=== PATIENT | male | born 1975 | race Two or more races ===

== ENCOUNTER → 2017-12-29 | Outpatient (REF) ==
[~2017-12-29] MED LIST: DOC100 PO; LORA-633 PO; OMEP-153 PO; PER PO; TYLENOL; VICODIN PO
== END ==
LOC: AUD 09:15
PROVIDERS: ATTEND Family Medicine
DX: Z01.10 Encounter for examination of ears and hearing without abnormal findings (principal)
CPT/HCPCS: 92552

== ENCOUNTER 2018-11-15 12:25 | Emergency (ER) | payer OTHER, BC ==
--- NOTE | 2018-11-15 12:27 | ER Report ---
History and Physical Time Seen By MD: 12:27 HPI/ROS CHIEF COMPLAINT: Right ankle pain HISTORY OF PRESENT ILLNESS: Patient states he was stepping out of a truck felt a pop in the lateral aspect of his ankle posteriorly and now has painful weightbearing. Patient states that injury was an inversion type injury. He reports no proximal leg tenderness and no pain in the foot; specifically over the 5th metatarsal. Allergies: Coded Allergies: No Known Drug Allergies (Verified , 10/26/11) Home Meds Reported Medications Lorazepam (Lorazepam) 1 Mg Tablet, 1 MG PO Q4H PRN, #12 0 Refills 10/26/11 Omeprazole (Omeprazole) 20 Mg Tablet.dr, 20 MG PO QDAY, #30 0 Refills 10/26/11 [None] No Conflict Check, 0 Refills 10/26/11 Past Medical/Surgical History History of reflux Hx Smoking: No Constitutional Vital Sign - Last 24 Hours 11/15/18 12:38 Temp 98.8 Physical Exam General appearance: alert no distress Right ankle: There is no significant swelling. There is no obvious deformity to the ankle. There is moderate tenderness to the steer aspect of the lateral malleolus. Ankle joint is stable and there is no tenderness over the achilles tendon. The foot is non-tender without swelling. Neurologic exam: The patient has normal sensation distal to the injury. Vascular exam: Normal pulses and capillary refill in the foot [ ] DIFFERENTIAL DIAGNOSIS: After history and physical exam differential diagnosis was considered for ankle injury including sprain, fracture, dislocation and soft tissue injury. Medical Decision Making EKG/Imaging Imaging FACILITY: [facility] [place] PATIENT NAME: Juancho De Anda : 1975 MR: [id number] V: [id number] EXAM DATE: ORDERING PHYSICIAN: DANIKA HULL TECHNOLOGIST: Location: [facility] Patient: Juancho De Anda : 1975 Visit/Account:[id number] Date of Sevice: 11/15/2018 INDICATION: pain. DATE: 11/15/2018 1:30 PM. TECHNIQUE: ANKLE 3 VIEW MIN RIGHT COMPARISON: None FINDINGS: Alignment is normal. No evidence of fracture or dislocation. No significant degenerative findings. IMPRESSION: No acute osseous abnormality. Report Dictated By: Emanuel Nava MD at 11/15/2018 1:30 PM Report E-Signed By: Emanuel Nava MD at 11/15/2018 1:31 PM WSN:[id number] ED Course/Re-evaluation ED Course Plan at this time will be x-ray of the right ankle and IV pain medication Decision to Disposition Date: Nov 15, 2018 Decision to Disposition Time: 13:59 Depart Departure Latest Vital Signs Vital Signs Date Time Temp Pulse Resp B/P (MAP) Pulse Ox O2 Delivery O2 Flow Rate FiO2 11/15/18 12:38 98.8 Impression: Primary Impression: Ankle sprain Condition: Improved Disposition: HOME OR SELF-CARE Referrals: BLANQUITA GRIMALDO MD (PCP) [facility] make an appointment if you still have pain with weight bearing after 7 days New Scripts Hydrocodone Bit/Acetaminophen (HYDROCODON-ACETAMINOPHEN 5-325) 1 Each Tablet 1 EACH PO Q4-6H PRN for PAIN, #12 TAB 0 Refills TAKE ONE TABLET BY MOUTH EVERY 4-6 HOURS NEEDED FOR PAIN Prov: DANIKA HULL MD 11/15/18 Departure Forms: ER Transition Record, Medications Reconciliation, Off Work/School Form, School or Work Release?: Work Number of days to be released: 3 Patient Portal Information Patient Instructions: Ankle Sprain (ED), Crutch Instructions (ED) Problem Qualifiers Primary Impression: Ankle sprain Encounter type: initial encounter Involved ligament of ankle: anterior talofibular ligament Laterality: right Qualified Codes: S93.491A - Sprain of other ligament of right ankle, initial encounter DANIKA HULL MD Nov 15, 2018 12:27
[2018-11-15] MEDS ORDERED: ONDANSETRON 4 MG/2 ML VIAL IVP ONE (12:50)
[2018-11-15] MEDS ORDERED: MORPHINE 4 MG/ML SDV IVP ONE (12:50)
--- NOTE | 2018-11-15 13:36 | RADIOLOGY IMAGING REPORT ---
FACILITY: [facility] PATIENT NAME: Juancho De Anda : 1975 MR: [id number] V: [id number] EXAM DATE: ORDERING PHYSICIAN: DANIKA HULL TECHNOLOGIST: Location: [facility] - [place] Patient: Juancho De Anda : 1975 Visit/Account:[id number] Date of Sevice: 11/15/2018 INDICATION: pain. DATE: 11/15/2018 1:30 PM. TECHNIQUE: ANKLE 3 VIEW MIN RIGHT COMPARISON: None FINDINGS: Alignment is normal. No evidence of fracture or dislocation. No significant degenerative findings. IMPRESSION: No acute osseous abnormality. Report Dictated By: Emanuel Nava MD at 11/15/2018 1:30 PM Report E-Signed By: Emanuel Nava MD at 11/15/2018 1:31 PM WSN:[id number]
[2018-11-15 14:00] VITALS: BP 101/67
[2018-11-15] MEDS ORDERED: LOR5/325 PO (14:01)
== END 2018-11-15 14:40 | disposition home or self-care (01) ==
LOC: ER 12:38
DX: S93.491A Sprain of other ligament of right ankle, initial encounter (principal)
CPT/HCPCS: 73610; 96374; 96375; 99284; J2270; J2405

== ENCOUNTER → 2019-01-11 | Outpatient (REF) ==
[~2019-01-11] MED LIST changes: +LOR5/325 PO
== END ==
LOC: AUD 13:20
PROVIDERS: ATTEND Family Medicine
DX: Z01.12 Encounter for hearing conservation and treatment (principal)
CPT/HCPCS: 92552